=== PATIENT | female | born 1990 | race Caucasian/White ===

== ENCOUNTER → 2024-08-15 13:56 | Outpatient (REF) | payer OTHER, SELFPAY | LOC: RAD 13:56 | PROVIDERS: ATTENDING PHYSICIAN Physician Assistant Medical; FAMILY PHYSICIAN Family Medicine; REFERRING PHYSICIAN Family Medicine | DX: R10.32 Left lower quadrant pain (principal) | CPT/HCPCS: 76830; 76856 ==

== ENCOUNTER 2024-08-16 09:42 | Emergency (ER) | payer OTHER, SELFPAY ==
[2024-08-16 09:53] VITALS: BP 136/95
[2024-08-16 10:19] LABS: % Basophils 1.9 % (0-2); % Eosinophils 5.7 % (0-6); % Immature Granulocytes 0.2 % (0-0.5); % Lymphocytes 27.4 % (20.5-51.1); % Monocytes 17.5 % (1.7-9.3); % Neutrophils 47.3 % (42.2-75.2); Absolute Basophils 0.1 10^3/uL (0-0.2); Absolute Eosinophils 0.2 10^3/uL (0-0.7); Absolute Lymphocytes 1.2 10^3/uL (1.2-3.4); Absolute Monocytes 0.7 10^3/uL (0.1-0.6); Hematocrit 40.4 % (37.0-47.0); Hemoglobin 13.9 g/dL (12.0-16.0); Mean Corp Hgb Conc. 34.4 g/dL (33.0-37.0); Mean Platelet Volume 10.1 fL (7.4-10.4); Nucleated Red Blood Cells % 0 %; Platelet Count 331 10^3/uL (130-400); Red Blood Cell Count 4.49 10^6/uL (4.20-5.40); Red Cell Dist. Width 13.1 % (11.5-14.5); White Blood Cell Count 4.2 10^3/uL (4.8-10.8)
[2024-08-16 10:31] LABS: ALT (SGPT) 17 U/L (0-35); AST (SGOT) 22 U/L (14-36); Albumin 4.3 g/dl (3.5-5.0); Alkaline Phosphatase 53 U/L (38-126); Blood Urea Nitrogen 14 mg/dl (7-17); Calcium 9.2 mg/dl (8.4-10.2); Carbon Dioxide 26 mmol/L (22-30); Chloride 106 mmol/L (98-107); Glucose 102 mg/dl (70-99); HCG, Serum Qualitative Screen Negative; Lipase 231 U/L (23-300); Potassium 4.4 mmol/L (3.5-5.1); Sodium 142 mmol/L (135-145); Total Bilirubin 0.5 mg/dl (0.2-1.3); Total Protein 7.5 g/dl (6.3-8.2); eGFR > 60.00
[2024-08-16] MEDS: OMNIPAQUE 50 ML PO (11:44)
--- NOTE | 2024-08-16 11:44 | ED.GENMED ---
History of Present Illness
General
Chief Complaint: Abdominal Pain
Source: patient
Time Seen by Provider: 08/16/24 11:05
History of Present Illness
History of Present Illness:
33-year-old female with past medical history of ulcerative colitis presenting to the emergency department for evaluation of left lower quadrant abdominal pain that has been ongoing for the last few days accompanied with 1 episode of loose
stool/diarrhea this morning, questionably intermixed with a little bit of blood, foul-smelling flatulence and diminished p.o. intake to solids. Patient was recently treated with a Z-Ashish for 'walking pneumonia' with the URI symptoms now resolved.
No fevers associated. Patient states these symptoms are different than a typical UC flare. Saw her GI physician earlier in the week who did a rectal exam and ordered her a pelvic ultrasound with the pelvic ultrasound showing no acute abnormalities
and rectal exam without any blood in the stool. Patient is on mesalamine for her ulcerative colitis. Social history was noted for occasional alcohol. Surgical history noncontributory
Past History
Past History
ED Past Medical History: Other (Ulcerative colitis)
ED Past Surgical History: Gynecological
Social History
Tobacco: Non-smoker
Alcohol: Occasional
Drug: None
Personal:
Living: with family
Review of Systems
Review of Systems
All Other Systems: ROS reviewed and negative except as documented in HPI and ROS
Phy Exam
Physical Exam
Physical Exam:
GENERAL: Alert , in no apparent distress
EYE: clear conjunctiva b/l
HEAD: NCAT
ENT: mmm.
CARDIAC: Regular rate and rhythm .
LUNGS: Clear breath sounds bilaterally, no acute respiratory distress, no wheezes/rales/rhonchi
ABDOMEN: Soft, left lower quadrant and suprapubic tenderness, no r/g, no cvat, negative Guevara sign, no tenderness at McBurney's point
NEUROLOGICAL: Alert and oriented
SKIN: Warm and dry, skin intact.
MUSCULOSKELETAL: well perfused.
PSYCH: Normal and appropriate interaction.
Scores
Heart Failure Risk
Heart Failure Risk Score: Not Applicable
Heart Score for Chest Pain Patients
STEMI patient?: Not applicable
Withdrawal Assessment of Alcohol
Withdrawal Assessment Completed?: Not applicable
Course
Orders/Labs/Results
Orders:
Orders
08/16/24 09:56
Test Result ONCE
08/16/24 10:12
C-Reactive Protein Urgent
Comment: ADD ON
Complete Blood Count/With Diff Urgent
Comprehensive Metabolic Panel Urgent
Erythrocyte Sed Rate Urgent
Comment: ADD ON
HCG, Serum Qualitative Screen Urgent
Comment: Notify provider if positive test present
Lipase Urgent
08/16/24 11:27
Add On- LAB Urgent
Tests Added?: esr/crp
CT Abd/pel (oral only)-DH Only Urgent
Comment:
Reason For Exam: LLQ pain, diarrhea, hx UC
STOOL [C difficile Antigen & Toxins] Urgent
MK Source: Feces/Stool
Specimen Description:
Date Specimen was Collected: 08/16/24
Time Specimen was Collected: 11:33
Stool Culture Urgent
MK Source: Feces/Stool
Specimen Description:
Date Specimen was Collected: 08/16/24
Time Specimen was Collected: 11:33
Iohexol [Omnipaque] See Protocol PO NOW STA
Abnormal Lab Results
08/16/24
10:12
WBC 4.2 L 10^3/uL
(4.8-10.8)
Absolute Monos (auto) 0.7 H 10^3/uL
(0.1-0.6)
Monocytes % 17.5 H %
(1.7-9.3)
Glucose 102 H mg/dl
(70-99)
08/16/24 10:12
08/16/24 10:12
Vital Signs
Initial and Last Documented VS:
Initial Vital Signs
Temp Pulse Resp BP Pulse Ox
98.5 F 108 18 136/95 100
08/16/24 09:53 08/16/24 09:53 08/16/24 09:53 08/16/24 09:53 08/16/24 09:53
Last Documented Vital Signs
Temp Pulse Resp BP Pulse Ox
97.6 F 76 20 131/82 99
08/16/24 14:29 08/16/24 14:29 08/16/24 14:29 08/16/24 14:29 08/16/24 14:29
MDM/Problems Addressed
Differential Diagnosis Includes:
UC flare, colitis, diverticulitis, UTI
MDM/Problems Addressed:
33-year-old female presenting the ER for evaluation of lower abdominal pain specifically worse in the left lower quadrant, questionable specks of blood intermixed over the last few days. Had ultrasound imaging done yesterday which was negative for
any acute pathology. Doubt gynecological issue. Given history of ulcerative colitis will check CT scan for further evaluation. Recent antibiotics with 1 episode of loose stool today, will attempt for stool study to evaluate. Patient declining
anything for symptoms at this time.
*Radiology
Radiology exam reviewed: radiology read reviewed
*Pulse Oximetry
Patient hypoxic: no
*Critical Care Note
Total Time (30-74mins, 75-104mins- exclusive of procedures): Not Applicable
Data Reviewed
Review of Other/Old Records Reveals: Radiology Studies
Source: patient
Patient Management
Escalation/DeEscalation of care consider admission/obs:
Patient CT scan without any acute emergent pathologies seen. Prescription for dicyclomine sent to pharmacy. Encourage close follow-up with primary care provider and GI physician. Patient aware of return precautions to the ER.
ED Attending Note
-
Portions of this chart may have been created with voice recognition software.� Occasional wrong word or��sound alike� substitutions may have occurred due to the inherent limitations of voice recognition software.
Discharge Plan
Departure
Patient Disposition: Home (Routine Discharge)
Date of Disposition: 08/16/24
Time of Disposition: 14:22
Patient with high blood pressure during this ER visit?: No
Discharge Problem:
Abdominal pain
Instructions: Abdominal Pain
Prescriptions:
New
dicyclomine 20 mg tablet
20 mg PO BID PRN (Reason: abdominal pain) Qty: 10 0RF
Referrals:
Ara Mascorro MD [Family Provider] -
Interventions
Interventions:
*Risk Screen - Suicide Last Done: 08/16/24 11:59
*General Assessment Last Done: 08/16/24 11:59
*Neglect/Abuse Screening Last Done: 08/16/24 11:59
ED- Fall Risk Assessment Last Done: 08/16/24 11:59
*ED COVID-19 Vaccine History Last Done: 08/16/24 11:59
*Nursing Disposition Last Done: 08/16/24 14:29
KZ-Hikizm-Zqlsgbvwjd Assessment Last Done: 08/16/24 11:59
Discharge Date and Time
Discharge Date/Time: 08/16/24 14:31
Print Language: CHINESE
[2024-08-16 11:59] VITALS: BP 115/85; BMI 24.3
[2024-08-16 11:59] LABS: Erythrocyte Sed Rate 17 mm/hour (0-20)
[2024-08-16 12:00] VITALS: BP 108/74
--- NOTE | 2024-08-16 13:12 | EDRN ---
the pt has finished all of her oral contrast, no c/o N/V, no s/s of distress, the pt denies needing anything at this time, will continue to monitor the pt closely
[2024-08-16 14:29] VITALS: BP 131/82
== END 2024-08-16 14:31 | disposition home or self-care (01) ==
LOC: EMR 09:42
PROVIDERS: EMERGENCY PHYSICIAN Emergency Medicine; FAMILY PHYSICIAN Family Medicine
DX: R10.32 Left lower quadrant pain (principal); Z87.19 Personal history of other diseases of the digestive system; Z79.899 Other long term (current) drug therapy
CPT/HCPCS: 99284; 74176; 80053; 83690; 84703; 85025; 85652; 86140